=== PATIENT | female | born 1950 | race Hispanic/Latino ===

== ENCOUNTER → 2018-08-24 | Outpatient (CLI) | payer MEDICARE ==
[~2018-08-24] VITALS: Ht 157.5 cm; Wt 65.8 kg
[~2018-08-24] MED LIST: AMLO10TA7 PO; LEVO500T89 PO; LISI40TA4 PO; ONDA4TAB10 PO; OSEL75 PO; PANT40TA PO; REGADENOSON 0.4 MG/5 ML PF SYG IVP SCH
== END | disposition home or self-care (01) ==
LOC: SHCH 08:20
PROVIDERS: ATTEND Internal Medicine Cardiovascular Disease
DX: R06.09 Other forms of dyspnea (principal)
CPT/HCPCS: 78452; 93017; 96374; A9500 ×2; J2785

== ENCOUNTER 2018-09-11 05:50 | Day surgery (SDC) | payer MEDICARE ==
[2018-09-08 10:07] LABS: BASOPHILS % (AUTO) 0.5 % (0.0-5.0); EOSINOPHILS % (AUTO) 1.1 % (0.0-8.0); HEMATOCRIT 35.6 % (36-48); LYMPHOCYTES % (AUTO) 19.8 % (21.0-51.0); MEAN CORPUSCULAR HEMOGLOBIN 31.8 pg (27.0-33.0); MEAN CORPUSCULAR HGB CONC 33.4 g/dL (32.0-36.0); MEAN CORPUSCULAR VOLUME 95.3 fL (79-99); MONOCYTES % (AUTO) 5.8 % (3.0-13.0); NEUTROPHILS % (AUTO) 72.8 % (40.0-77.0); PLATELET COUNT (AUTO) 234 K/uL (130-400); RED BLOOD CELL COUNT(AUTO) 3.73 MIL/uL (4.00-5.50); RED CELL DISTRIBUTION WIDTH 14.2 % (11.0-15.5); WHITE BLOOD COUNT (AUTO) 6.9 K/uL (4.8-10.8)
[2018-09-08 10:10] VITALS: BP 179/92
[2018-09-08 10:11] LABS: CREATININE 0.7 mg/dL (0.5-1.5); POTASSIUM 4.6 mmol/L (3.5-5.1)
[2018-09-08 10:15] LABS: INR 0.96 (0.85-1.15); PARTIAL THROMBOPLASTIN TIME 26.1 SEC (26.3-35.5); PROTHROMBIN TIME 10.1 SEC (9.6-11.6)
[2018-09-08 10:26] LABS: APPEARANCE,URINE CLOUDY (CLEAR); BILIRUBIN,URINE NEGATIVE (NEGATIVE); COLOR,URINE YELLOW (YELLOW); GLUCOSE, URINE (UA) NEGATIVE (NEGATIVE); KETONES,URINE NEGATIVE (NEGATIVE); LEUKOCYTE ESTERASE ,URINE LARGE (NEGATIVE); NITRATE,URINE NEGATIVE (NEGATIVE); OCCULT BLOOD,URINE TRACE-INTACT (NEGATIVE); PH,URINE 7.5 (5.0-8.0); PROTEIN,URINE TRACE mg/dL (NEGATIVE); UROBILINOGEN,URINE 0.2 mg/dL (0.2-1.0)
[2018-09-08 10:51] LABS: BACTERIA,URINE Moderate /HPF (None Seen); SQUAMOUS EPITHELIAL CELL,UR Moderate /HPF (0-2)
--- NOTE | 2018-09-08 16:45 | NUR ---
UA INFORMED ABHILASH POZO OF ABNORMAL UA. ORDERS RECEIVED TO SEND UA COLLECTED FOR A CULTURE AND SENSITIVITY AND REMIND DR. JONES ON AM OF PROCEDURE.
[~2018-09-11] VITALS: Ht 154.9 cm; Wt 62.3 kg
[2018-09-11] VITALS (11 sets, daily range): BP systolic 122–164; BP diastolic 70–89
[~2018-09-11 05:50] MED LIST changes: -AMLO10TA7 PO; +ASPI-555 PO; +ATOR20TA65 PO; +CARV6.25 PO; +ISOS30TA6 PO; -LEVO500T89 PO; +LISI-613 PO; -LISI40TA4 PO; -ONDA4TAB10 PO; -OSEL75 PO; -PANT40TA PO; -REGADENOSON 0.4 MG/5 ML PF SYG IVP SCH; +SODIUM CHLORIDE 0.9% 1000ML 1,000 ML IV SCH
[2018-09-11] MEDS ORDERED: NITR0.4T50 SL (06:46)
[2018-09-11] MEDS ORDERED: CLOBETASOL CREAM TP (06:46)
[2018-09-11] MEDS ORDERED: IOHEXOL-350 50ML VIAL IV ONE (08:20)
[2018-09-11] MEDS ORDERED: IOHEXOL 350 MG/ML 100ML INFUS..BTL IV ONE (08:20)
[2018-09-11] MEDS ORDERED: LIDOCAINE HCL 2% 20ML ONE (08:20)
[2018-09-11] MEDS ORDERED: BIVALIRUDIN 250 MG/VIAL IV ONE (08:20)
[2018-09-11] MEDS ORDERED: NITROGLYCERIN 5 MG/ML 10 ML VIAL IV ONE (08:20)
[2018-09-11] MEDS ORDERED: FENTANYL CITRATE PF 50 MCG/1 ML 2ML VIAL ONE (08:26)
[2018-09-11] MEDS ORDERED: MIDAZOLAM HCL 1 MG/ML 2ML VIAL ONE (08:26)
[2018-09-11] MEDS ORDERED: LABETALOL 20 MG/4 ML DISP.SYRIN IV ONE ×2 (08:58→09:01)
[2018-09-11] MEDS ORDERED: IOHEXOL-350 75 ML VIAL IV ONE (09:09)
[2018-09-11] MEDS ORDERED: LABETALOL HCL 5 MG/ML 20ML VIAL IV ONE (09:12)
[2018-09-11] MEDS ORDERED: SODIUM CHLORIDE 0.9% 1000ML 1,000 ML IV SCH (09:31)
--- NOTE | 2018-09-11 11:30 | NUR ---
DIET PT TOLERATED DIET WELL, SON ASSISTED PT.
[2018-09-11 11:55] LABS: APPEARANCE,URINE CLEAR (CLEAR); BILIRUBIN,URINE NEGATIVE (NEGATIVE); COLOR,URINE YELLOW (YELLOW); GLUCOSE, URINE (UA) NEGATIVE (NEGATIVE); KETONES,URINE NEGATIVE (NEGATIVE); LEUKOCYTE ESTERASE ,URINE MODERATE (NEGATIVE); NITRATE,URINE NEGATIVE (NEGATIVE); OCCULT BLOOD,URINE MODERATE (NEGATIVE); PH,URINE 7.5 (5.0-8.0); PROTEIN,URINE NEGATIVE (NEGATIVE); UROBILINOGEN,URINE 0.2 mg/dL (0.2-1.0)
[2018-09-11 12:05] LABS: BACTERIA,URINE Rare /HPF (None Seen); RBC,URINE 0-1 /HPF (0-1); SQUAMOUS EPITHELIAL CELL,UR Rare /HPF (0-2)
--- NOTE | 2018-09-11 12:30 | NUR ---
UA RESULTS UA CLEAN CATCH PER MD ORDER COLLECTED POST PROCEDURE, RESULTS REPORTED TO DR. JONES. NO FURTHER ORDERS GIVEN.
[2018-09-11 14:02] LABS: AMMONIA < 10 umol/L (11-32)
[2018-09-11 14:30] LABS: T4 (THYROXINE) 8.4 ug/dL (4.7-13.3)
--- NOTE | 2018-09-11 14:55 | NUR ---
DISCHARGE CT OF BRAIN WITHOUT CONTRAST RESULT NEGATIVE. PT DISCHARGED VIA WHEELCHAIR WITH SON. PT STABLE. NO COMPLAINTS MADE. PT VOIDED PRIOR TO DISCHARGE, ASSISTED TO BATHROOM, AMBULATED WITHOUT ANY PROBLEMS. CATH SITE TO RIGHT GROIN REMAINS SOFT, DRESSING DRY AND INTACT, NO OOZING NO HEMATOMA NOTED. DISCHARGE INSTRUCTIONS GIVEN TO SON EARLIER, ALSO DEMONSTRATED TO SON ON HOW TO MONITOR CATH SITE FOR BLEEDING, HEMATOMA. VERBALIZED UNDERSTANDING.
== END 2018-09-11 14:55 | disposition home or self-care (01) ==
LOC: DAH 05:50
PROVIDERS: ATTEND Internal Medicine Cardiovascular Disease
DX: I51.7 Cardiomegaly (principal); I25.10 Atherosclerotic heart disease of native coronary artery without angina pectoris; R94.39 Abnormal result of other cardiovascular function study; I10 Essential (primary) hypertension; E78.5 Hyperlipidemia, unspecified; F41.9 Anxiety disorder, unspecified; Z90.710 Acquired absence of both cervix and uterus; Z79.899 Other long term (current) drug therapy; Z83.3 Family history of diabetes mellitus; Z82.3 Family history of stroke; Z82.5 Family history of asthma and other chronic lower respiratory diseases; Z82.49 Family history of ischemic heart disease and other diseases of the circulatory system; Z79.01 Long term (current) use of anticoagulants
CPT/HCPCS: 36252; 36415 ×2; 70450; 71045; 80048; 81001 ×2; 82140; 82607; 82746; 84436; 84443; 85025; 85610; 85730; 86592; 87088; 93005; 93458; A4606; C1760; C1894; J1644; J2250; J3490 ×3; J7030; Q9965; Q9967 ×3; 99156; 99157; J0583; J3010

== ENCOUNTER → 2021-11-12 | Outpatient (CLI) | payer MEDICARE ==
[~2021-11-12] MED LIST changes: -ASPI-555 PO; +ASPI-556 PO; -CARV6.25 PO; +CLOBETASOL CREAM TP; -ISOS30TA6 PO; -LISI-613 PO; +NITR0.4T50 SL; -SODIUM CHLORIDE 0.9% 1000ML 1,000 ML IV SCH
== END | disposition home or self-care (01) ==
LOC: SHCH 14:45
PROVIDERS: ATTEND Internal Medicine Cardiovascular Disease
DX: I08.1 Rheumatic disorders of both mitral and tricuspid valves (principal); E66.9 Obesity, unspecified; E78.5 Hyperlipidemia, unspecified
CPT/HCPCS: 93306